=== PATIENT | female | born 1990 | race Caucasian/White ===

== ENCOUNTER 2020-08-28 20:31 | Emergency (ER) | payer SELFPAY ==
[2020-08-28 20:56] VITALS: BP 122/75; PULSE 105; TEMP 98; BMI 18.8
== END 2020-08-28 22:05 | disposition left against medical advice (07) ==
LOC: JER 20:31
DX: N20.0 Calculus of kidney (principal)
CPT/HCPCS: 99284-25

== ENCOUNTER 2020-08-29 09:12 | Inpatient (IN) | payer SELFPAY ==
[2020-08-29 09:18] VITALS: BMI 18.8
[2020-08-29] MEDS ORDERED: KETOROLAC TROMETHAMINE 30 MG/1 ML VIAL IVPUSH ONE (10:01)
[2020-08-29] MEDS ORDERED: ONDANSETRON 4 MG/2 ML VIAL IVPUSH ONE (10:02)
[2020-08-29] MEDS ORDERED: SODIUM CHLORIDE 1,000 ML IV STA (10:02)
[2020-08-29] MEDS ORDERED: KETOROLAC TROMETHAMINE 30 MG/1 ML VIAL ONE ×2 (10:30→13:09)
[2020-08-29] MEDS ORDERED: ONDANSETRON 4 MG/2 ML VIAL ONE (10:30)
[2020-08-29 11:19] LABS: BASO % 0.9 % (0-2.0); EOS % 0.6 % (0-4.5); HEMATOCRIT 31.2 % (32.4-45.2); HEMOGLOBIN 10.4 GM/dL (10.7-15.3); LYMPH % 26.2 % (8-40); MCH 27.8 pg (25.7-33.7); MCHC 33.5 g/dl (32.0-36.0); MEAN CELL VOLUME 83.1 fl (80-96); MEAN PLT VOLUME 8.1 fl (7.5-11.1); MONO % 11.3 % (3.8-10.2); PLATELET COUNT 223 K/MM3 (134-434); RBC 3.75 M/mm3 (3.60-5.2); RDW 12.5 % (11.6-15.6); WHITE BLOOD COUNT 4.6 K/mm3 (4.0-10.0)
[2020-08-29 11:26] LABS: INR 1.25 (0.83-1.09); PROTHROMBIN TIME (PATIENT) 15.3 SEC (9.7-13.0)
[2020-08-29 11:37] LABS: POTASSIUM 3.7 mmol/L (3.5-5.1)
[2020-08-29 11:41] LABS: BLOOD UREA NITROGEN 5.5 mg/dL (7-18); CALCIUM 8.5 mg/dL (8.5-10.1)
[2020-08-29 11:42] LABS: ALBUMIN 3.6 g/dl (3.4-5.0)
[2020-08-29 11:45] LABS: CREATININE 0.9 mg/dL (0.55-1.3)
[2020-08-29 11:46] LABS: TOT PROT 6.9 g/dl (6.4-8.2)
[2020-08-29 11:48] LABS: BILIRUBIN,TOTAL 0.3 mg/dL (0.2-1)
[2020-08-29] MEDS ORDERED: morphine CARPU-JECT 4 MG/1 ML DISP.SYRIN IVPUSH ONE (12:16)
[2020-08-29] MEDS ORDERED: MORPHINE SULFATE 2 MG/ML VIAL ONE (12:17)
[2020-08-29] MEDS ORDERED: ONDANSETRON 4 MG/2 ML VIAL IVPUSH PRN ×2 (12:56→14:26)
[2020-08-29] MEDS ORDERED: LACTATED RINGERS SOLUTION 1,000 ML IV SCH (13:00)
[2020-08-29] MEDS ORDERED: MIDAZOLAM HCL 2 MG/2 ML SINGLE DOSE VIAL ONE (13:09)
[2020-08-29] MEDS ORDERED: DEXAMETHASONE SOD PHOSPHATE 4 MG/1 ML VIAL ONE (13:09)
[2020-08-29] MEDS ORDERED: LIDOCAINE HCL/PF 2% SDV 5ML VIAL ONE (13:09)
[2020-08-29] MEDS ORDERED: PROPOFOL 20 ML ONE ×2 (13:09)
[2020-08-29] MEDS ORDERED: ACETAMINOPHEN 325 MG TABLET (FP) PO PRN (13:27)
[2020-08-29] MEDS ORDERED: SUCCINYLCHOLINE CHLORIDE 200 MG/10 ML SYRINGE ONE (14:09)
[2020-08-29] MEDS ORDERED: ceFAZolin SODIUM 1 GM VIAL ONE (14:22)
[2020-08-29] MEDS ORDERED: ceFAZolin 2 GRAM PREMIX BAG IVPB ONE ×2 (14:22)
[2020-08-29] MEDS ORDERED: oxyCODONE HCL 5 MG TABLET PO PRN (14:26)
[2020-08-29] MEDS ORDERED: PROMETHAZINE HCL 25 MG/1 ML VIAL IVPB PRN (14:26)
[2020-08-29] MEDS ORDERED: ELECTROLYTE-148 SOLN 1,000 ML IV SCH (15:00)
[2020-08-29 18:49] VITALS: BP 119/68; PULSE 85; TEMP 98
== END 2020-08-29 18:40 | disposition home or self-care (01) | DRG 465 ==
LOC: JER 09:12 → JERBED 11:07
PROVIDERS: ADMIT Internal Medicine; ATTEND Internal Medicine
PROC: 0TF68ZZ Fragmentation in Right Ureter, Via Natural or Artificial Opening Endoscopic (ICD-10-PCS; principal; 2020-08-29 12:30)
PROC: 0T768DZ Dilation of Right Ureter with Intraluminal Device, Via Natural or Artificial Opening Endoscopic (ICD-10-PCS; 2020-08-29 12:30)
PROC: BT1DYZZ Fluoroscopy of Right Kidney, Ureter and Bladder using Other Contrast (ICD-10-PCS; 2020-08-29 12:30)
DX: N20.1 Calculus of ureter (principal); D64.9 Anemia, unspecified; F32.9 Major depressive disorder, single episode, unspecified
CPT/HCPCS: 36415; 76000-TC-FY; 80053; 84703; 85025; 85610; 86850; 86900; 86901; 94760; 99285-25; C9803; U0003; U0005